=== PATIENT | female | born 1950 | race Caucasian/White ===

== ENCOUNTER 2016-06-17 21:25 | Emergency (ER) | payer MEDICARE ==
--- NOTE | 2016-06-17 22:39 | ED CLINICAL REPORT ---
Clinical Report - Physicians/Mid Levels [facility] [address] [place] [address] 06/17/2016 21:26 Patient: NIRAV TEJADA Time Seen: 2129; upon arrival, initial patient contact, initial documentation, patient care assumed. Arrived- By ambulance. Historian- patient. HISTORY OF PRESENT ILLNESS Chief Complaint: FALL. Location of injuries- left hip and left ankle. The injury occurred today. Fell off a stool; slipped (sitting on stool, leaned over reaching for something and fell off landing on L side). Occurred at home. The patient complains of moderate pain. No blow to the head, neck pain, loss of consciousness or seizure. Not dazed. (on abx and steroids currently for bronchitis). REVIEW OF SYSTEMS The patient complains of pain on weight bearing. No numbness, chest pain, difficulty breathing, weakness or laceration. She has had a moderate nonproductive cough (for 2 - 3 days ago). All systems otherwise negative, except as recorded above. PAST HISTORY See nurses notes. PROBLEMS: COPD - Chronic Obstructive Pulmonary Disease. Chronic pain. PARATHYROID DISEASE. Renal Failure. Hypertension. Hypercholesterolemia. Diabetes Mellitus. --21:44 Safia Serrano R.N. ACUTE BRONCHITIS. --21:44 Safia Serrano R.N. ADDITIONAL SURGERIES: B/L KNEE REPLACEMENTS. Back Surgery. C SECTION X 3. Dilatation & Curettage. LEFT HIP REPLACEMENT. ORIF LEFT ANKLE. --21:44 Safia Serrano R.N. SOCIAL HISTORY Light tobacco smoker. History of occasional drug use: marijuana. No alcohol use. No recent travel. Residence: here from [place] Is an out of state resident. Visiting locally. FAMILY HISTORY No significant family medical history. ADDITIONAL NOTES The nursing notes have been reviewed with agreement regarding the chief complaint, HPI, ROS, PMH and patient medications and allergies. PHYSICAL EXAM Vital Signs: 06/17/2016 21:33 BP: 155/88. HR: 88. RR: 20. O2 saturation: 92%. Temp: 99.0 F. Have been reviewed as normal and appear to be correct. Blood pressure normal. Heart rate normal. Respiratory rate normal. Temperature normal. Oxygen saturation low. Appearance: Alert. Oriented X3. No acute distress. Head: Head non-tender. No swelling of head. Eyes: Pupils equal, round and reactive to light. EOM intact. ENT: No dental injury. Pharynx normal. Neck: Painless ROM. Non-tender. Non-tender. CVS: Heart sounds normal. Pulses normal. Respiratory: Breath sounds abnormal. Mild rales present in the bases bilaterally. Chest nontender. Abdomen: No visible injury. Soft and nontender. Moderately obese. Back: No tenderness. ROM normal. Skin: Skin intact. Skin warm and dry. Normal skin color. Normal skin turgor. Extremities: Normal inspection. Pelvis stable. Extremities atraumatic. No lower extremity edema. Neuro: Oriented X 3. No motor deficit. No sensory deficit. LABS, X-RAYS, AND EKG X-Rays: X-rays are normal and reveal no acute disease (and reviewed by dr de la o). Chest X-ray negative. Left hip negative. Left ankle negative. The X-rays were independently viewed by me. Chest X-ray: Congestive heart failure present. Cardiomegaly. The X-rays were independently viewed by me. PROGRESS AND PROCEDURES Course of Care: 2234. pt telling me that the ring on her hip xray is a lock that was put in by hip specialist to connect the muscle with bone and prosthetic. Patient counseled in person regarding the patient's stable condition, test results and diagnosis. 2234. Differential Diagnosis: Other possible considerations: fall, fx, sprain, lacs, contusions, abrasions, pneumonia, bronchitis, chf. Above considerations are based on history, physical exam and X-Ray data. Differential diagnosis was discussed with patient. Disposition: Discharged home in good and unchanged condition (22:39). Condition: good and stable. CLINICAL IMPRESSION Sprain of the tibiofibular ligament of the left ankle. Fall from chair and on same level by slipping. Muscle strain of the left hip. INSTRUCTIONS Warnings: GENERAL WARNINGS: Return or contact your physician immediately if your condition worsens or changes unexpectedly, if not improving as expected, or if other problems arise. SPECIFICALLY, return if you develop numbness or incontinence of feces (loss of bowel control) or urine (loss of bladder control). Follow-up: Follow up with an orthopedic surgeon in about one week as needed. Call for an appointment. Reason for referral: or when you return to [place] . Summary of care provided to patient. Understanding of the discharge instructions verbalized by patient. (Electronically signed by Jolly Guevara A.R.N.P. 06/18/2016 13:01)
--- NOTE | 2016-06-17 22:39 | ED CLINICAL REPORT ---
Clinical Report - Physicians/Mid Levels [facility] [address] [place] [address] 06/17/2016 21:26 Patient: NIRAV TEJADA Time Seen: 2129; upon arrival, initial patient contact, initial documentation, patient care assumed. Arrived- By ambulance. Historian- patient. HISTORY OF PRESENT ILLNESS Chief Complaint: FALL. Location of injuries- left hip and left ankle. The injury occurred today. Fell off a stool; slipped (sitting on stool, leaned over reaching for something and fell off landing on L side). Occurred at home. The patient complains of moderate pain. No blow to the head, neck pain, loss of consciousness or seizure. Not dazed. (on abx and steroids currently for bronchitis). REVIEW OF SYSTEMS The patient complains of pain on weight bearing. No numbness, chest pain, difficulty breathing, weakness or laceration. She has had a moderate nonproductive cough (for 2 - 3 days ago). All systems otherwise negative, except as recorded above. PAST HISTORY See nurses notes. PROBLEMS: COPD - Chronic Obstructive Pulmonary Disease. Chronic pain. PARATHYROID DISEASE. Renal Failure. Hypertension. Hypercholesterolemia. Diabetes Mellitus. --21:44 Safia Serrano R.N. ACUTE BRONCHITIS. --21:44 Safia Serrano R.N. ADDITIONAL SURGERIES: B/L KNEE REPLACEMENTS. Back Surgery. C SECTION X 3. Dilatation & Curettage. LEFT HIP REPLACEMENT. ORIF LEFT ANKLE. --21:44 Safia Serrano R.N. SOCIAL HISTORY Light tobacco smoker. History of occasional drug use: marijuana. No alcohol use. No recent travel. Residence: here from [place] Is an out of state resident. Visiting locally. FAMILY HISTORY No significant family medical history. ADDITIONAL NOTES The nursing notes have been reviewed with agreement regarding the chief complaint, HPI, ROS, PMH and patient medications and allergies. PHYSICAL EXAM Vital Signs: 06/17/2016 21:33 BP: 155/88. HR: 88. RR: 20. O2 saturation: 92%. Temp: 99.0 F. Have been reviewed as normal and appear to be correct. Blood pressure normal. Heart rate normal. Respiratory rate normal. Temperature normal. Oxygen saturation low. Appearance: Alert. Oriented X3. No acute distress. Head: Head non-tender. No swelling of head. Eyes: Pupils equal, round and reactive to light. EOM intact. ENT: No dental injury. Pharynx normal. Neck: Painless ROM. Non-tender. Non-tender. CVS: Heart sounds normal. Pulses normal. Respiratory: Breath sounds abnormal. Mild rales present in the bases bilaterally. Chest nontender. Abdomen: No visible injury. Soft and nontender. Moderately obese. Back: No tenderness. ROM normal. Skin: Skin intact. Skin warm and dry. Normal skin color. Normal skin turgor. Extremities: Normal inspection. Pelvis stable. Extremities atraumatic. No lower extremity edema. Neuro: Oriented X 3. No motor deficit. No sensory deficit. LABS, X-RAYS, AND EKG X-Rays: X-rays are normal and reveal no acute disease (and reviewed by dr de la o). Chest X-ray negative. Left hip negative. Left ankle negative. The X-rays were independently viewed by me. Chest X-ray: Congestive heart failure present. Cardiomegaly. The X-rays were independently viewed by me. PROGRESS AND PROCEDURES Course of Care: 2234. pt telling me that the ring on her hip xray is a lock that was put in by hip specialist to connect the muscle with bone and prosthetic. Patient counseled in person regarding the patient's stable condition, test results and diagnosis. 2234. Differential Diagnosis: Other possible considerations: fall, fx, sprain, lacs, contusions, abrasions, pneumonia, bronchitis, chf. Above considerations are based on history, physical exam and X-Ray data. Differential diagnosis was discussed with patient. Disposition: Discharged home in good and unchanged condition (22:39). Condition: good and stable. CLINICAL IMPRESSION Sprain of the tibiofibular ligament of the left ankle. Fall from chair and on same level by slipping. Muscle strain of the left hip. INSTRUCTIONS Warnings: GENERAL WARNINGS: Return or contact your physician immediately if your condition worsens or changes unexpectedly, if not improving as expected, or if other problems arise. SPECIFICALLY, return if you develop numbness or incontinence of feces (loss of bowel control) or urine (loss of bladder control). Follow-up: Follow up with an orthopedic surgeon in about one week as needed. Call for an appointment. Reason for referral: or when you return to [place] . Summary of care provided to patient. Understanding of the discharge instructions verbalized by patient. (Electronically signed by Jolly Guevara A.R.N.P. 06/18/2016 13:01)
--- NOTE | 2016-06-17 22:39 | ED NURSING NOTES ---
Clinical Report - Nurses [facility] [address] [place] [address] 06/17/2016 21:26 Patient: NIRAV TEJADA TRIAGE Triage time 21:29 Jun 17 2016. Acuity: LEVEL 3. Chief Complaint: FALL OFF A CHAIR. 21:33 06/17/16. KIMBERLEE COMA SCORE: Kimberlee Coma Scale: 15- eyes open spontaneously (4); best verbal response- oriented x 4 (5); best motor response- obeys commands (6). --21:33 Safia Serrano R.N. 21:33 06/17/16. BP: 155/88. HR: 88. RR: 20. O2 saturation: 92%. Temp: 99.0 F. Pain level now 8/10. --21:33 Safia Serrano R.N. Weight: 102.5 kg stated. Height/Length: 63 inches Per Patient. BMI: 40. --21:27 Safia Serrano R.N. Medications Vicodin Oral. --21:39 Safia Serrano R.N. Levofloxacin Oral. --21:40 Safia Serrano R.N. Medrol (Marcos) Oral. --21:40 Safia Serrano R.N. Diazepam. --21:42 Safia Serrano R.N. Metoprolol. --21:42 Safia Serrano R.N. Breo Ellipta Inhalation. Pantoprazole Sodium Oral. Paricalcitol Oral. --21:42 Safia Serrano R.N. Lasix. --21:43 Safia Serrano R.N. Buspirone. --21:43 Safia Serrano R.N. HYDROZYZINE. --21:43 Safia Serrano R.N. Sertraline. --21:43 Safia Serrano R.N. LIsinopril. --21:43 Safia Serrano R.N. Vitamin B. --21:43 Safia Serrano R.N. Vitamin D 3. --21:43 Safia Serrano R.N. Allergies Penicillins. --21:36 Safia Serrano R.N. Doxycycline. --21:36 Safia Serrano R.N. Percocet. --21:36 Safia Serrano R.N. Medication/allergy information source: the patient. --21:33 Safia Srerano R.N. History Arrived by EMS. Historian: patient. Location of injuries: left hip and left ankle. This occurred today. ( fell off of a stool while reaching for something). She has had extremity pain and trouble walking. No loss of consciousness. No alteration in mental status, dizziness, neck pain, back pain or limited ROM present. No difficulty breathing. Treatment EMERGENCY ROOM DOCTOR: None. Trauma activation: Pre-hospital notification of patient arrival was received. PAST MEDICAL HX: Immunizations: has received pneumonia vaccine; seasonal influenza. SOCIAL HX: Heavy tobacco smoker (cigarette)- less than 1 pack per day. History of drug use: marijuana. No alcohol use. No infectious disease exposure. ABUSE ASSESSMENT: No report of abuse. SELF HARM ASSESSMENT: A self harm assessment was performed. The patient answered "no" to the question "Have you recently felt down, depressed, or hopeless?", "Have you noticed less interest or pleasure in doing things?", "Do you have thoughts of harming or killing yourself?", "Are you here because you tried to hurt yourself?", "Have you ever tried to hurt yourself before today?", "Have you recently had thoughts about harming or killing others?" and "Do you have any dangerous items in your possession?". NUTRITIONAL RISK ASSESSMENT: The nutritional risk assessment revealed no deficiencies. LEARNING NEEDS ASSESSMENT: The learning needs assessment revealed no barriers. FUNCTIONAL ASSESSMENT: Functional assessment performed: independent with the activities of daily living; uses walker- this mobility impairment is an ongoing problem. SKIN INTEGRITY ASSESSMENT: Skin integrity risk assessment completed. No skin integrity risk identified. --21:33 Safia Serrano R.N. PROBLEMS: COPD - Chronic Obstructive Pulmonary Disease. Chronic pain. PARATHYROID DISEASE. Renal Failure. Hypertension. Hypercholesterolemia. Diabetes Mellitus. --21:44 Safia Serrano R.N. ACUTE BRONCHITIS. --21:44 Safia Serrano R.N. ADDITIONAL SURGERIES: B/L KNEE REPLACEMENTS. Back Surgery. C SECTION X 3. Dilatation & Curettage. LEFT HIP REPLACEMENT. ORIF LEFT ANKLE. --21:44 Safia Serrano R.N. Interventions ID band on patient. --21:33 Safia Serrano R.N. PHYSICAL ASSESSMENT GENERAL / NEURO / PSYCH: Alert. Oriented X 4. HEENT: Pupils equal, round and reactive to light. SKIN: Skin is warm and dry. --21:35 Safia Serrano R.N. To room via stretcher. GENERAL / NEURO / PSYCH: Alert. Oriented X 4. Appears in no acute distress. HEENT: Pupils equal, round and reactive to light. Head non-tender. RESPIRATORY: Mild respiratory distress. ( cough, frequent moist. crackles in bases). CVS: Pulses: right dorsalis pedis 1+, left dorsalis pedis per doppler, right posterior tibial 1+ and left posterior tibial per doppler. EXTREMITIES: Neuro-vascular status intact to the extremity. Left hip: (pain with wt bearing). Left ankle: (pain with wt bearing). SKIN: Skin intact. Skin is warm and dry. --21:51 Safia Serrano R.N. NURSING PROGRESS NOTES 21:35 06/17/16. The initial plan of care for this patient includes an assessment with efforts to address the presence of pain; impairment of the respiratory and musculoskeletal system. This plan of care was discussed with the patient. Reassurance given. Two patient identifiers checked. Call light placed in reach. Side rails up x 1. Bed placed in lowest position. Brakes of bed on. Patient ready for evaluation. --21:53 Safia Serrano R.N. 21:53 06/17/16. Patient transported to radiology by stretcher. --22:02 Safia Serrano R.N. Patient returned from radiology by stretcher. --22:23 Safia Serrano R.N. 22:34 06/17/16. ( Radiologist reviewing films). --22:34 Safia Serrano R.N. DISPOSITION / DISCHARGE 23:03 06/17/16. Condition at departure: improved and stable. The goals identified in the patient's plan of care were met. No learning barriers present. Reviewed medication(s). Reviewed referral to an orthopedic surgeon and a primary care physician for followup. Summary of care provided to patient. The patient was discharged home and accompanied by family. She left the Emergency Department in a wheelchair and via private vehicle. Family member driving. --23:03 Safia Serrano R.N. 23:03 06/17/16. BP: 156/80. HR: 80. RR: 16. O2 saturation: 92%. Temp: 99.0 F. Pain level now 8/10. --23:03 Safia Serrano R.N. Departure time: 23:03 Jun 17 2016. --23:03 Safia Serrano R.N. Locked/Released at 06/17/2016 23:05 by Safia Serrano R.N.
--- NOTE | 2016-06-17 22:39 | ED ORDER SUMMARY ---
..... Patient: NIRAV TEJADA OrderSheet [facility] VisitID: [id number] [place] [address] 66y, F Registration Date/Time: 06/17/2016 ORDER SHEET Weight: 102.5 kg (stated) Allergies: Penicillins, Doxycycline, Percocet GENERAL ORDERS: Chest 2V Urgent (21:38 06/17/2016 HBivens A.R.N.P.) (Ack 21:40 CHategekimana) (22:24 MCampbell) Ankle 3 or 4V Left Urgent (21:39 06/17/2016 HBivens A.R.N.P.) (Ack 21:40 CHategekimana) (22:24 MCampbell) Hip 2V Left w AP Pelvis Urgent (21:39 06/17/2016 HBivens A.R.N.P.) (Ack 21:40 CHategekimana) (22:24 MCampbell) MEDICATION ORDERS: IV FLUIDS: ORDER SHEET NOTES: [Electronically signed by Safia Serrano R.N. (23:05 06/17/2016)] [Electronically signed by Jolly Guevara A.R.N.P. (13:01 06/18/2016)] [Electronically locked/signed by Safia Serrano R.N. (23:05 06/17/2016)]
--- NOTE | 2016-06-17 22:39 | ED ORDER SUMMARY ---
..... Patient: NIRAV TEJADA OrderSheet [facility] VisitID: [id number] [place] [address] 66y, F Registration Date/Time: 06/17/2016 ORDER SHEET Weight: 102.5 kg (stated) Allergies: Penicillins, Doxycycline, Percocet GENERAL ORDERS: Chest 2V Urgent (21:38 06/17/2016 HBivens A.R.N.P.) (Ack 21:40 CHategekimana) (22:24 MCampbell) Ankle 3 or 4V Left Urgent (21:39 06/17/2016 HBivens A.R.N.P.) (Ack 21:40 CHategekimana) (22:24 MCampbell) Hip 2V Left w AP Pelvis Urgent (21:39 06/17/2016 HBivens A.R.N.P.) (Ack 21:40 CHategekimana) (22:24 MCampbell) MEDICATION ORDERS: IV FLUIDS: ORDER SHEET NOTES: [Electronically signed by Safia Serrano R.N. (23:05 06/17/2016)] [Electronically signed by Jolly Guevara A.R.N.P. (13:01 06/18/2016)] [Electronically locked/signed by Safia Serrano R.N. (23:05 06/17/2016)]
--- NOTE | 2016-06-17 22:42 | DIAGNOSTIC IMAGING REPORT ---
PROCEDURE: XR HIP 2VW W W/O AP PELVIS-LT INDICATION: TRAUMA/INJURY TECHNIQUE: AP view of the pelvis and hips with lateral view of the left hip. COMPARISON: None. FINDINGS: LEFT HIP: Status post left total hip prosthesis. PELVIS: Osseous pelvis is normal. Right hip is normal. Moderate degenerative changes of the lower lumbar spine. IMPRESSION: 1. Status post left total hip prosthesis. 2. Otherwise negative pelvis and left hip. 3. Findings discussed with Dr. Kevin Baird.
--- NOTE | 2016-06-17 22:43 | DIAGNOSTIC IMAGING REPORT ---
PROCEDURE: XR ANKLE 3 OR 4 VIEWS - LEFT INDICATION: TRAUMA/INJURY TECHNIQUE: Four views. COMPARISON: None. FINDINGS: Status post open reduction internal fixation of left distal fibular fracture (transfixed with a side plate multiple screws). There is 5 mm a chronic lateral subluxation of the mortise joint with moderate valgus position, with marked degenerative changes of the mortise and subtalar joints. There is no evidence of acute process or fracture. IMPRESSION: 1. Postoperative and marked degenerative changes of the left ankle. 2. No evidence of acute fracture.
--- NOTE | 2016-06-17 22:44 | DIAGNOSTIC IMAGING REPORT ---
PROCEDURE: XR CHEST 2 VIEW INDICATION: COUGH TECHNIQUE: PA and lateral views. COMPARISON: None. FINDINGS: Allowing for suboptimal inspiration, lungs are clear. Heart and mediastinum are normal. Moderate to marked dextroscoliosis of the thoracic spine. Old right rib fractures. IMPRESSION: 1. Moderate to marked dextroscoliosis of the thoracic spine. 2. Otherwise negative chest.
--- NOTE | 2016-06-18 13:01 | ED MED RECONCILIATION SUMMARY ---
Patient: NIRAV TEJADA Medication Reconciliation Report [facility] VisitID: [id number] [address] [place] [address] 66y, F Registration Date/Time: 06/17/2016 Weight: 102.5 kg Height/Length: 63 in. BMI: 40.0 ALLERGIES: Doxycycline, Penicillins, Percocet The patient's Home Medications are listed below: THE FOLLOWING MEDICATIONS NEED TO BE RECONCILED: Breo Ellipta Inhalation Buspirone Diazepam HYDROZYZINE Lasix Levofloxacin Oral LIsinopril Medrol (Marcos) Oral Metoprolol Pantoprazole Sodium Oral Paricalcitol Oral Sertraline Vicodin Oral Vitamin B Vitamin D 3 The source(s) of the original Home Medication information: patient The following Medications were given to the patient in the Emergency Department: None. The following Medications were prescribed to the patient: None.
--- NOTE | 2016-06-18 13:01 | ED DISCHARGE INSTRUCTIONS ---
Patient: NIRAV TEJADA General Instructions [facility] VisitID: [id number] [place] [address] 66y, F Registration Date/Time: 06/17/2016 Sprain of the tibiofibular ligament of the left ankle. Fall from chair and on same level by slipping. Muscle strain of the left hip. INSTRUCTIONS Warnings: GENERAL WARNINGS: Return or contact your physician immediately if your condition worsens or changes unexpectedly, if not improving as expected, or if other problems arise. SPECIFICALLY, return if you develop numbness or incontinence of feces (loss of bowel control) or urine (loss of bladder control). Follow-up: Follow up with an orthopedic surgeon in about one week as needed. Call for an appointment. Reason for referral: or when you return to [place] . Summary of care provided to patient. Understanding of the discharge instructions verbalized by patient. ADDITIONAL INFORMATION Mechanical Fall You have had a fall today. It appears that the cause is mechanical. That means that you slipped, tripped or lost your balance. If your fall had been due to fainting or a seizure, further tests would be required. Home Care: Rest today and resume your normal activities when you are feeling back to normal. If you were injured during the fall, follow the advice from your doctor regarding care of your injury. You may use acetaminophen (Tylenol) or ibuprofen (Motrin, Advil) to control pain, unless another pain medicine was prescribed. [NOTE: If you have chronic liver or kidney disease or ever had a stomach ulcer or GI bleeding, talk with your doctor before using these medicines.] Fall Prevention: Was there anything that caused your fall that can be fixed, removed, or replaced? Make your home safe by keeping walkways clear of objects you may trip over. Use non-slip pads under rugs. Do not walk in poorly lit areas. Do not stand on chairs or wobbly ladders. Use caution when reaching overhead or looking upward. This position can cause a loss of balance. Be sure your shoes fit properly, have non-slip bottoms and are in good condition. Be cautious when going up and down curbs, and walking on uneven sidewalks. If your balance is poor, consider using a cane or walker. Stay as active as you can. Balance, flexibility, strength, and endurance all come from exercise. They all play a role in preventing falls. Follow Up with your doctor or as advised by our staff. Get Prompt Medical Attention if any of the following occur: Repeated mechanical falls, or unexplained falls Dizziness, fainting or seizure Severe headache Chest pain or shortness of breath Palpitations (very rapid or very slow or irregular heartbeat) Blood in vomit, stools (black or red color) Weakness of an arm or leg or one side of the face Difficulty with speech or vision Muscle Strain,Extremity A MUSCLE STRAIN is a stretching and tearing of muscle fibers. This causes pain, especially with motion of that muscle. There may also be some swelling and bruising. Home Care: 1) Keep the injured area raised to reduce pain and swelling. This is especially important during the first 48 hours. 2) Make an ice pack (ice cubes in a plastic bag, wrapped in a towel) and apply for 20 minutes every 1-2 hours the first day. You should continue with ice packs 3-4 times a day for the second and third days. Unless otherwise instructed, on the fourth day you may begin hot soaks or hot packs (small towel soaked in hot water) 3-4 times a day while you gently exercise the involved area. 3) You may use acetaminophen (Tylenol) or ibuprofen (Motrin, Advil) to control pain, unless another medicine was prescribed. [ NOTE : If you have chronic liver or kidney disease or ever had a stomach ulcer or GI bleeding, talk with your doctor before using these medicines.] 4) For LEG STRAINS: If CRUTCHES have been recommended, do not bear full weight on the injured leg until you can do so without pain. You may return to sports when you are able to hop and run on the injured leg without pain. Follow Up with your doctor or this facility if you are not improving within the next five days. Get Prompt Medical Attention if any of the following occur: -- Fingers or toes become swollen, cold, blue, numb or tingly -- Pain or swelling increases Hip Strain You have a strain of the muscles around the hip joint. A muscle strain is a stretching or tearing of muscle fibers. This causes pain, especially with motion of that muscle. There may also be some swelling and bruising. Home Care: Stay off the injured leg as much as possible until you can walk on it without pain. If you have a lot of pain with walking, crutches or a walker may be prescribed. (These can be rented or purchased at many pharmacies and surgical or orthopedic supply stores). Follow your doctor's advice regarding when to begin bearing weight on that leg. Apply an ice pack (ice cubes in a plastic bag, wrapped in a towel) over the injured area for 20 minutes every 1-2 hours the first day. Continue with ice packs 3-4 times a day for the next two days, then as needed for the relief of pain and swelling. Unless otherwise instructed, on the fourth day you may begin hot soaks or hot packs (small towel soaked in hot water) 3-4 times a day while you gently exercise the involved area. You may use acetaminophen (Tylenol) or ibuprofen (Motrin, Advil) to control pain, unless another pain medicine was prescribed. [NOTE: If you have chronic liver or kidney disease or ever had a stomach ulcer or GI bleeding, talk with your doctor before using these medicines.] If you play sports, you may resume these activities when you are able to hop and run on the injured leg without pain. Follow Up with your doctor, or as advised by our staff, if your symptoms do not begin to improve after one week. Further tests may be needed. [NOTE: If X-rays were taken, they will be reviewed by a radiologist. You will be notified of any new findings that may affect your care.] Get Prompt Medical Attention if any of the following occur: Increased swelling or increased bruising Pain becomes worse Decreased ability to bear weight on the injured side Sprain, Ankle,With X-Ray A sprain is an injury to the ligaments or capsule that holds a joint together. There are no broken bones. Most sprains take from four to six weeks to heal. If the ligament is completely torn (severe sprain), it can take several months to recover. Mild to moderate sprains may be treated with an elastic wrap or an in-shoe splint to provide support and prevent re-injury. A mild sprain may not require any additional support. A severe sprain may require surgery to repair. Home care The following guidelines will help you care for your injury at home: Stay off the injured leg as much as possible until you can walk on it without pain. If you have a lot of pain with walking, crutches or a walker may be prescribed. (These can be rented or purchased at many pharmacies and surgical or orthopedic supply stores). Follow your doctor's advice regarding when to begin bearing weight on that leg. Keep your leg elevated to reduce pain and swelling. When sleeping, place a pillow under the injured leg. When sitting, support the injured leg so it is level with your waist. This is very important during the first 48 hours. Apply an ice pack (ice cubes in a plastic bag, wrapped in a towel) over the injured area for 20 minutes every 12 hours the first day. You can place the ice pack directly over the splint/cast. If you were given a boot, open it to apply the ice pack. Continue with ice packs 34 times a day for the next two days, then as needed for the relief of pain and swelling. You may use acetaminophen or ibuprofen to control pain, unless another pain medicine was prescribed. If you have chronic liver or kidney disease or ever had a stomach ulcer or GI bleeding, talk with your doctor before using these medicines. You may return to sports after healing, when you can run without pain. A sprained ankle is at risk for re-injury during the first six weeks. During that time, protect your ankle with an in-shoe splint that prevents tilting of your ankle from side to side. This is very important if you do active work or play sports during that time. Follow-up care Any X-rays you had today dont show any broken bones, breaks, or fractures. Sometimes fractures dont show up on the first X-ray. Bruises and sprains can sometimes hurt as much as a fracture. These injuries can take time to heal completely. If your symptoms dont improve or they get worse, talk with your doctor. You may need a repeat X-ray. When to seek medical care Get prompt medical attention if any of the following occur: The plaster cast or splint gets wet or soft The fiberglass cast or splint gets wet and does not dry for 24 hours Pain or swelling increases, or redness appears Toes become cold, blue, numb or tingly Re-injure your ankle You have been given the following additional information: Fall, Mechanical Muscle Strain, Extremity Hip Strain Sprain, Ankle, With X-Ray (Electronically signed by Jolly Guevara [email or web address]. 06/18/2016 13:01)
--- NOTE | 2016-06-18 13:01 | ED MAR SUMMARY ---
..... Medication Administration Record [facility] [address] [place], [place] [id number] Patient: NIRAV TEJADA Visit ID: [id number] 66y, F Weight: 102.5 kg Height/Length: 63 in BMI: 40 ALLERGIES: Percocet, Doxycycline, Penicillins
--- NOTE | 2016-06-18 13:01 | ED MAR SUMMARY ---
..... Medication Administration Record [facility] [address] [place], [place] [id number] Patient: NIRAV TEJADA Visit ID: [id number] 66y, F Weight: 102.5 kg Height/Length: 63 in BMI: 40 ALLERGIES: Percocet, Doxycycline, Penicillins
--- NOTE | 2016-06-18 13:01 | ED MED RECONCILIATION SUMMARY ---
Patient: NIRAV TEJADA Medication Reconciliation Report [facility] VisitID: [id number] [address] [place] [address] 66y, F Registration Date/Time: 06/17/2016 Weight: 102.5 kg Height/Length: 63 in. BMI: 40.0 ALLERGIES: Doxycycline, Penicillins, Percocet The patient's Home Medications are listed below: THE FOLLOWING MEDICATIONS NEED TO BE RECONCILED: Breo Ellipta Inhalation Buspirone Diazepam HYDROZYZINE Lasix Levofloxacin Oral LIsinopril Medrol (Marcos) Oral Metoprolol Pantoprazole Sodium Oral Paricalcitol Oral Sertraline Vicodin Oral Vitamin B Vitamin D 3 The source(s) of the original Home Medication information: patient The following Medications were given to the patient in the Emergency Department: None. The following Medications were prescribed to the patient: None.
== END 2016-06-17 23:00 | disposition home or self-care (01) ==
LOC: ED SRH 21:25
DX: S93.432A Sprain of tibiofibular ligament of left ankle, initial encounter (principal); S76.012A Strain of muscle, fascia and tendon of left hip, initial encounter; W07.XXXA Fall from chair, initial encounter; Y93.89 Activity, other specified; Y92.009 Unspecified place in unspecified non-institutional (private) residence as the place of occurrence of the external cause; Y99.9 Unspecified external cause status; E11.9 Type 2 diabetes mellitus without complications; J44.9 Chronic obstructive pulmonary disease, unspecified; I10 Essential (primary) hypertension; F17.210 Nicotine dependence, cigarettes, uncomplicated